=== PATIENT | male | born 1985 | race Caucasian/White ===

== ENCOUNTER 2018-04-18 18:06 | Emergency (ER) | payer SELFPAY ==
[~2018-04-18] VITALS: Ht 177.8 cm; Wt 154.0 kg
[2018-04-18 18:14] VITALS: TEMP 37.1; Ht 177.8 cm; Wt 154.0 kg
--- NOTE | 2018-04-18 18:44 | DIAGNOSTIC IMAGING REPORT ---
LEFT TIBIA AND FIBULA 2 VIEWS CLINICAL HISTORY: Left ankle injury. FINDINGS: AP and lateral views of the left tibia and fibula are obtained. Correlation is made with radiographs of the left ankle dated 01/01/2012. The skeletal structures are well mineralized. There is no radiographic evidence of left tibial or fibular fracture. The knee and ankle joints appear maintained. There is an ankle joint effusion. Soft tissue edema is noted around the ankle. Dorsal and plantar calcaneal enthesophytes are observed. IMPRESSION: 1. There is no radiographic evidence of left tibial or fibular fracture. 2. There is an ankle joint effusion with surrounding soft tissue edema. Electronically signed by: Ivan Zhu M.D. 04/18/2018 6:43 PM Dictated Date/Time: 04/18/2018 6:41 PM
--- NOTE | 2018-04-18 18:46 | DIAGNOSTIC IMAGING REPORT ---
LEFT FOOT 3 VIEWS CLINICAL HISTORY: Left foot injury. FINDINGS: 3 views of the left foot are correlated with left ankle radiographs dated 01/01/2012. The skeletal structures are well mineralized. There is no radiographic evidence of left foot fracture. There is mild hallux valgus. The joint spaces of the foot are maintained. There are small dorsal and plantar calcaneal enthesophytes. There is an ankle joint effusion, with soft tissue swelling around the ankle. The soft tissues of the foot are normal as imaged. IMPRESSION: There is no radiographic evidence of left foot fracture. Electronically signed by: Ivan Zhu M.D. 04/18/2018 6:44 PM Dictated Date/Time: 04/18/2018 6:43 PM
--- NOTE | 2018-04-18 19:28 | EMERGENCY ROOM VISIT NOTE ---
History First contact with patient: 18:17 Chief Complaint: ANKLE PAIN Stated Complaint: LEFT ANKLE History of Present Illness The patient is a 33 year old male who presents to the Emergency Room via private vehicle accompanied by female with complaints of "left ankle pain". The patient states that around 4:30 PM today while at home he was outside walking when he stepped into a hole and inverted his left ankle. He now notes pain in the left mid martinez extending distally into the foot. He rates the pain as an 8/10. He notes some intermittent numbness/tingling into the distal region. He notes pain with weightbearing. Review of Systems A complete 6-point Review of Systems was discussed with the patient, with pertinent positives and negatives listed in the History of Present Illness. All remaining Review of Systems questions can be considered negative unless otherwise specified. Past Medical/Surgical History No pertinent. Family History No pertinent. Social History Smoking Status: Current Every Day Smoker Marital Status: Current/Historical Medications Miscellaneous Medications None (Patient States No Home Meds) Physical Exam Vital Signs Date Time Temp Pulse Resp B/P (MAP) Pulse Ox O2 Delivery O2 Flow Rate FiO2 04/18/18 20:06 93 18 171/106 96 04/18/18 18:14 37.1 100 20 172/138 97 Room Air Physical Exam VITAL SIGNS - Vital signs and nursing notes were reviewed. Hypertensive. Afebrile. GENERAL -33-year-old male appearing his stated age who is in no acute distress. Communicates well with provider and answers questions appropriately. SKIN - Without rashes. The skin overlying the patient's left leg is slightly edematous but not erythematous. It is intact. EXTREMITIES - No clubbing or peripheral cyanosis. No pretibial edema present. Tenderness overlying the left anterior martinez extending inferiorly and laterally to the left lateral ankle joint as well as extending into the foot. He has excellent capillary refill distally and is neurovascularly intact. +5/5 strength noted in UE/LE bilaterally. NEUROLOGIC - Cranial nerves II through XII grossly intact. Sensory intact to light touch throughout. PSYCH - A&O, and cooperates fully with examiner. Pt is very pleasant and interacts well with examiner. Medical Decision & Procedures ER Provider Diagnostic Interpretation: LEFT TIBIA AND FIBULA 2 VIEWS CLINICAL HISTORY: Left ankle injury. FINDINGS: AP and lateral views of the left tibia and fibula are obtained. Correlation is made with radiographs of the left ankle dated 01/01/2012. The skeletal structures are well mineralized. There is no radiographic evidence of left tibial or fibular fracture. The knee and ankle joints appear maintained. There is an ankle joint effusion. Soft tissue edema is noted around the ankle. Dorsal and plantar calcaneal enthesophytes are observed. IMPRESSION: 1. There is no radiographic evidence of left tibial or fibular fracture. 2. There is an ankle joint effusion with surrounding soft tissue edema. Electronically signed by: Ivan Zhu M.D. 04/18/2018 6:43 PM Dictated Date/Time: 04/18/2018 6:41 PM LEFT FOOT 3 VIEWS CLINICAL HISTORY: Left foot injury. FINDINGS: 3 views of the left foot are correlated with left ankle radiographs dated 01/01/2012. The skeletal structures are well mineralized. There is no radiographic evidence of left foot fracture. There is mild hallux valgus. The joint spaces of the foot are maintained. There are small dorsal and plantar calcaneal enthesophytes. There is an ankle joint effusion, with soft tissue swelling around the ankle. The soft tissues of the foot are normal as imaged. IMPRESSION: There is no radiographic evidence of left foot fracture. Electronically signed by: Ivan Zhu M.D. 04/18/2018 6:44 PM Dictated Date/Time: 04/18/2018 6:43 PM Medical Decision Patient was seen and evaluated as above in room D4. Review was performed of nursing notes and vital signs. After obtaining a thorough history and physical examination the above work up was performed. He presents to us today with left ankle pain. He rates his pain as an 8/10. I believe this is contributing to his hypertensive state at 172/138. I do not believe that treatment of this value at this time is warranted as I believe it is an acute response to his injury. Further, x-rays were obtained of the patient's tib/fibula as well as foot. No fracture or dislocation. He was educated upon the risk of occult fracture. He was placed gel ankle splint and made nonweightbearing with crutches. He declined pain medication while here. He will use over-the- counter meds at home. He is to follow with orthopedics if the pain persists this coming week. He was educated upon the risk of compartment syndrome. The patient was educated upon management, educated upon todays findings/results, educated upon symptoms in which to return, had questions answered prior to discharge, and was discharged home in good condition. In the evaluation and treatment of this patient, the following differential diagnoses were considered: Ankle Fracture, Ankle Sprain, Distal Fibula Fracture , Distal Tibia Fracture, Foot Fracture, Maisonneuve Fracture. Impression Primary Impression: Left ankle pain Departure Information Dispostion Home / Self-Care Condition GOOD Referrals No Doctor, Assigned (PCP) Jerald Thomson D.O. Patient Instructions My [facility] Additional Instructions You have been treated in the Emergency Department for a left ankle injury. For pain control, you can use the following [id number] medicines (if >12 yo): - Regular strength (325mg/tab) Tylenol (acetaminophen) 2 tabs every 4-6 hours as needed. Do not exceed 12 tablets in a 24 hour period. Avoid taking more than 3 grams (3000 mg) of Tylenol per day. This includes any other sources of acetaminophen you may take on a regular basis. - Regular strength (200 mg/tab) Advil (ibuprofen) 1-2 tabs every 4-6 hours as needed. Do not exceed a dose of 3200 mg per day. If this is a recent injury (<24 hrs), ice can be applied to the area of pain for the first 3 days to help decrease pain and inflammation. You have been provided the number for an Orthopaedic Surgeon. You should call this number as soon as possible to establish a follow-up visit from today's Emergency Department visit. Keep the ankle brace/splint in place until cleared by Orthopedics. Use the crutches you have been provided to keep ALL weight off of the ankle until weight bearing is tolerable. Return to the Emergency Department if your current symptoms worsen despite treatment course outlined above, or if you develop any of the following symptoms : intractable pain despite aforementioned treatment course or new onset of numbness or tingling of the foot.
[2018-04-18 20:06] VITALS: BP 171/106; PULSE 93; O2SAT 96
== END 2018-04-18 20:06 | disposition home or self-care (01) ==
LOC: C.EDB 18:07 → C.EDD 20:06
DX: M25.572 Pain in left ankle and joints of left foot (principal); X50.1XXA Overexertion from prolonged static or awkward postures, initial encounter; Y93.01 Activity, walking, marching and hiking; Y92.009 Unspecified place in unspecified non-institutional (private) residence as the place of occurrence of the external cause; F17.200 Nicotine dependence, unspecified, uncomplicated